=== PATIENT | male | born 1960 | race Caucasian/White ===

== ENCOUNTER 2016-06-23 15:26 | Inpatient (IN) | payer OTHER ==
[~2016-06-23] VITALS: Ht 180.3 cm; Wt 85.4 kg
[2016-06-23 15:40] VITALS: BP 121/95; PULSE 107; RESP 18; TEMP 98.1; O2SAT 96
[2016-06-23] MEDS ORDERED: BACT800T5 PO (17:26)
[2016-06-23] MEDS ORDERED: LEVO200T4 PO (17:26)
--- NOTE | 2016-06-23 18:03 | PD ---
HPI Chief Complaint: Laceration/Skin Injury Time Seen by Provider: 17:57 Travel History International Travel<30 days: No Contact w/Intl Traveler<30days: No Traveled to known affect area: No History of Present Illness HPI This 55-year-old male is complaining of pain and swelling of the left fifth finger. He says at about 10 days ago he went surfing and cut the finger. He says is quite a small cut like a paper cut. He noted some swelling and last he went to his doctor and was started on Bactrim. The Bactrim didn't seem to be helping and he went to [facility] on Wednesday. An incision and drainage was done and pus was obtained. He was changed to Cipro at that time. Since leaving there the finger has become more swollen and painful. He has fairly constant throbbing pain in the finger. The pain is alleviated by elevation PFSH Past Medical History Thyroid Disease: Yes Tetanus Vaccination: < 5 Years Influenza Vaccination: No Past Surgical History Other Surgery: Yes (LT ORBIT) Social History Alcohol Use: Yes (COUPLE TIMES PER MONTH) Tobacco Use: No Substance Use: No Allergies-Medications (Allergen,Severity, Reaction): Coded Allergies: Bee Sting (Verified Allergy, Unknown, DOESN'T REMEMBER, 06/23/16) Reported Meds & Prescriptions Reported Meds & Active Scripts Active Reported Levothyroxine (Levothyroxine Sodium) 200 Mcg Tab 200 Mcg PO DAILY Bactrim DS (Sulfamethoxazole-Trimethoprim) 800-160 Mg Tab 1 Tab PO BID Review of Systems General / Constitutional: No: Fever, Chills Eyes: No: Diploplia, Blurred Vision HENT: No: Headaches, Vertigo, Lightheadedness Cardiovascular: No: Chest Pain or Discomfort, Palpitations Respiratory: No: Cough, Shortness of Breath Gastrointestinal: No: Vomiting, Diarrhea Genitourinary: No: Urgency, Frequency Musculoskeletal: Positive: Pain Skin: Positive Rash Neurologic: No: Weakness, Dizziness Hematologic/Lymphatic: No: Easy Bruising Physical Exam Narrative GENERAL: Well-developed male SKIN: Warm and dry. HEAD: Atraumatic. Normocephalic. EYES: Pupils equal and round. No scleral icterus. No injection or drainage. ENT: No nasal bleeding or discharge. Mucous membranes pink and moist. NECK: Trachea midline. No JVD. CARDIOVASCULAR: Regular rate and rhythm. No murmur appreciated. RESPIRATORY: No accessory muscle use. Clear to auscultation. Breath sounds equal bilaterally. GASTROINTESTINAL: Abdomen soft, non-tender, nondistended. Hepatic and splenic margins not palpable. MUSCULOSKELETAL: No obvious deformities. No clubbing. No cyanosis. No edema. Examination of the left hand there is fairly diffuse swelling of the left fifth finger involving the middle phalanx and distally. There is some breakdown of the skin. There is diffuse erythema and some purulent drainage. Flexion of the distal phalanx is limited. There is no lymphangitis NEUROLOGICAL: Awake and alert. No obvious cranial nerve deficits. Motor grossly within normal limits. Normal speech. PSYCHIATRIC: Appropriate mood and affect; insight and judgment normal. Data Data Last Documented VS Vital Signs Date Time Temp Pulse Resp B/P Pulse Ox O2 Delivery O2 Flow Rate FiO2 06/23/16 15:40 98.1 107 18 121/95 96 Room Air Orders Complete Blood Count With Diff (06/23/16 18:14) Basic Metabolic Panel (Bmp) (06/23/16 18:14) Urinalysis - C+S If Indicated (06/23/16 18:14) Wound Culture And Gram Stain (06/23/16 18:14) Admit Order (Ed Use Only) (06/23/16 18:15) MDM Medical Decision Making Medical Screen Exam Complete: Yes Emergency Medical Condition: Yes Medical Record Reviewed: Yes Differential Diagnosis Differential includes recurrent abscess, intra-articular infection, soft tissue infection Narrative Course Case discussed with Dr. Domínguez. He requests admission for IV antibiotics and he will evaluate the patient for possible surgical treatment. Patient has been started on vancomycin Diagnosis Primary Impression: Finger infection Admitting Information Admitting Physician Requests: Admit Blu Abel MD Jun 23, 2016 18:03
[2016-06-23 18:32] LABS: AUTOMATED NEUTROPHIL # 6.5 TH/MM3 (1.8-7.7); BASOPHIL # 0.1 TH/MM3 (0-0.2); BASOPHIL % 0.7 % (0.0-2.0); EOSINOPHIL # 0.2 TH/MM3 (0-0.4); EOSINOPHIL % 2.1 % (0.0-4.0); LYMPH % 21.7 % (9.0-44.0); LYMPHOCYTE # 2.1 TH/MM3 (1.0-4.8); MEAN CELL VOLUME 86.8 FL (80.0-100.0); MEAN CORPUSCULAR HEMOGLOBIN 27.3 PG (27.0-34.0); MEAN CORPUSCULAR HGB CONC 31.4 % (32.0-36.0); MONO % 6.9 % (0.0-8.0); NEUT % 68.6 % (16.0-70.0); PLATELET COUNT 313 TH/MM3 (150-450); RED BLOOD COUNT 5.64 MIL/MM3 (4.50-5.90); WHITE BLOOD COUNT 9.6 TH/MM3 (4.0-11.0)
[2016-06-23 18:38] LABS: POTASSIUM 4.2 MEQ/L (3.5-5.1)
[2016-06-23 18:41] LABS: BICARBONATE 24.9 MEQ/L (21.0-32.0)
[2016-06-23 18:43] LABS: HEMO FLAGS DIFF FINAL
[2016-06-23 18:44] VITALS: BP 149/95; PULSE 62; RESP 18; O2SAT 97
[2016-06-23] MEDS ORDERED: SODIUM CHLOR 0.9% 1000 ML INJ 1,000 ML IV SCH (18:45)
[2016-06-23] MEDS ORDERED: VANCOMYCIN INJ 1,250 MG in SODIUM CHLOR 0.9% 250 ML INJ 250 ML IV ONE (18:45)
[2016-06-23 19:07] VITALS: BP 142/91; PULSE 62; RESP 20; O2SAT 97
[2016-06-23 19:34] LABS: BLOOD, URINE SMALL (NEG); GLUCOSE,URINE NEG (NEG); KETONE, URINE NEG (NEG); NITRITE,URINE NEG (NEG)
[2016-06-23] MEDS ORDERED: ACETAMINOPHEN 325 MG TAB PO PRN (19:45)
[2016-06-23] MEDS ORDERED: SODIUM CHLORIDE 0.9% FLUSH 10 ML FLUSH IV FLUSH PRN (19:45)
[2016-06-23] MEDS ORDERED: NALOXONE HCL 0.4 MG/ML AMP IV PRN (19:45)
[2016-06-23] MEDS ORDERED: ONDANSETRON HCL 4 MG/2 ML VIAL IVP PRN (19:45)
[2016-06-23] MEDS ORDERED: ACETAMINOPHEN/HYDROcodone 325 MG/5 MG TAB PO PRN (19:45)
--- NOTE | 2016-06-23 19:45 | HHI.HP ---
[facility] Florinda Ball M.D. Admission Diagnosis INFECTION LEFT FIFTH FINGER Diagnoses: Chief Complaint: Fifth left finger abscess and cellulitis Travel History International Travel<30 Days: No Contact w/Intl Traveler <30 Da: No Traveled to Known Affected Are: No History of Present Illness 55 years old right handed surfer male presented to the ED with complaining of severe pain and swelling and pus coming out of his left fifth finger. Patient reported having event while he was surfing about a week ago he wasn't sure what he touched while surfing that cause him and caught in his finger which he tried to treated symptomatically but got worse over the time with swelling redness and pus. He reported some subjective fever. He has no past mental history except for hypothyroidism no history of IVDU. Review of Systems All 10 systems reviewed and was positive for what is mentioned in history of present illness otherwise negative Past Family Social History Past Medical History Hypothyroidism Past Surgical History History of facial trauma in the past Allergies: Coded Allergies: Bee Sting (Verified Allergy, Unknown, DOESN'T REMEMBER, 06/23/16) Family History Not aware of any significant related medical history and his family Social History Denied tobacco alcohol or illicit drug abuse Physical Exam Vital Signs Vital Signs Date Time Temp Pulse Resp B/P Pulse Ox O2 Delivery O2 Flow Rate FiO2 06/23/16 19:07 62 20 142/91 97 Room Air 06/23/16 18:44 62 18 149/95 97 Room Air 06/23/16 15:40 98.1 107 18 121/95 96 Room Air Physical Exam GENERAL: This is a well-nourished, well-developed patient, in no apparent distress. SKIN: No rashes, warm and dry HEAD: Atraumatic. Normocephalic. EYES: Pupils equal round and reactive. Extraocular motions intact. No scleral icterus. ENT: Nose without bleeding, or drainage, Airway patent. NECK: Trachea midline. Supple CARDIOVASCULAR: Regular rate and rhythm without murmurs, gallops, or rubs. RESPIRATORY: Fair air entry bilaterally. No wheezes, rales, or rhonchi. GASTROINTESTINAL: Abdomen soft, non-tender, nondistended. Positive bowel sounds MUSCULOSKELETAL: Extremities without clubbing, cyanosis, or edema. Pedal pulses appreciated, left fifth digits with cut on the palmar side with significant swelling erythema and seems to be dry drainage NEUROLOGICAL: Awake and alert. Moves all extremity. Normal speech.no focal neurological deficit Laboratory Laboratory Tests Test 06/23/16 06/23/16 18:20 19:00 White Blood Count 9.6 Red Blood Count 5.64 Hemoglobin 15.4 Hematocrit 49.0 Mean Corpuscular Volume 86.8 Mean Corpuscular Hemoglobin 27.3 Mean Corpuscular Hemoglobin 31.4 Concent Red Cell Distribution Width 12.0 Platelet Count 313 Mean Platelet Volume 7.8 Neutrophils (%) (Auto) 68.6 Lymphocytes (%) (Auto) 21.7 Monocytes (%) (Auto) 6.9 Eosinophils (%) (Auto) 2.1 Basophils (%) (Auto) 0.7 Neutrophils # (Auto) 6.5 Lymphocytes # (Auto) 2.1 Monocytes # (Auto) 0.7 Eosinophils # (Auto) 0.2 Basophils # (Auto) 0.1 CBC Comment DIFF FINAL Differential Comment Sodium Level 143 Potassium Level 4.2 Chloride Level 108 Carbon Dioxide Level 24.9 Anion Gap 10 Blood Urea Nitrogen 25 Creatinine 1.00 Estimat Glomerular Filtration 78 Rate Random Glucose 94 Calcium Level 9.5 Urine pH 6.0 Urine Protein NEG Urine Glucose (UA) NEG Urine Ketones NEG Urine Occult Blood SMALL Urine Nitrite NEG Urine Bilirubin NEG Urine Leukocyte Esterase NEG Date/Time Procedure Status Source Growth 06/23/16 18:15 Gram Stain Received Wound Finger Pending 06/23/16 18:15 Wound Culture Received Wound Finger Pending Result Diagram: 06/23/16 1820 06/23/16 1820 Imaging Last Impressions Finger X-Ray 06/23/16 0000 Signed Impressions: Service Date/Time: Thursday, June 23, 2016 19:22 - CONCLUSION: Soft tissue swelling and no definite fracture for technique. Paul Osorio MD Assessment and Plan Assessment and Plan 55 years old male admitted with Left fifth finger cellulitis/abscess with possible tenosynovitis, due to trauma while surfing Consult and surgery for I&D Pain management Started on vancomycin, hand surgeon added Levaquin Hypothyroidism: Continue Synthroid DVT prophylaxis with ambulation Discussed Condition With Patient in ED physician Physician Certification 2 Midnight Certification Type: Admission for Inpatient Services Order for Inpatient Services The services are ordered in accordance with Medicare regulations or non- Medicare payer requirements, as applicable. In the case of services not specified as inpatient-only, they are appropriately provided as inpatient services in accordance with the 2-midnight benchmark. Estimated LOS (days): 2 days is the estimated time the patient will need to remain in the hospital, assuming treatment plan goals are met and no additional complications. Post-Hospital Plan: Not yet determined Antoinette Kelly MD Jun 23, 2016 19:44
[2016-06-23 19:50] LABS: URINE COLOR YELLOW (YELLW/STRAW)
[2016-06-23 19:51] LABS: RBC, URINE 0-3 /hpf (0-3); SQUAMOUS EPITHELIAL CELL URINE 0-5 /hpf (0-5)
[2016-06-23 19:52] LABS: COMMENT (UR) CULT NOT INDICATED; CULTURE IF INDICATED CULT NOT INDICATED
--- NOTE | 2016-06-23 19:54 | RADHPO ---
EXAM DATE/TIME: 06/23/2016 19:22 [place] COMPARISON: No previous studies available for comparison. INDICATIONS : Patient states something bit his finger while surfing. Complains of pain and swelling. MEDICAL HISTORY : None. SURGICAL HISTORY : None. ENCOUNTER: Initial ACUITY: 1 week PAIN SCORE: 10/10 LOCATION: Left hand, fifth digit FINDINGS: No definite fractures, or dislocations are identified. No definite lytic or sclerotic lesion is seen . Soft tissue swelling is identified. CONCLUSION: Soft tissue swelling and no definite fracture for tyler. Paul Osorio MD on June 23, 2016 at 19:52 Board Certified Radiologist. This report was verified electronically.
[2016-06-23] MEDS: SODIUM CHLORIDE 0.9% FLUSH 10 ML FLUSH IV FLUSH SCH (21:00)
[2016-06-23 21:30] VITALS: BP 147/106; PULSE 60; RESP 20; TEMP 97.4; O2SAT 97
--- NOTE | 2016-06-23 22:10 | MB ---
cc: YAZAN SHELL MD DATE OF ADMISSION 06/23/16 DATE OF CONSULTATION 06/23/16 HISTORY OF PRESENT ILLNESS The patient is a 55-year-old [id number] healthy white male who was sent here by Dr. Anne-Marie Ball with absolutely fantastic documentation accompanying him. Briefly, about eight days ago he cut his left fifth finger while surfing. It got infected. He was placed on antibiotics by mouth, subsequently had a brief incision and drainage in the emergency room at [facility] and then was seen by Dr. Ball today and emergently sent to my attention here at the hospital through the emergency room where he is currently with an infected left fifth finger. I agree completely with Dr. Ball it does need surgical attention urgently. PAST MEDICAL HISTORY History of hypothyroidism. PAST SURGICAL HISTORY 1. Tracheostomy at 2. Right facial trauma with surgery to correct that in 1999. FAMILY HISTORY Noncontributory to current visit or injury. ALLERGIES NO KNOWN DRUG ALLERGIES. MEDICATIONS Levothyroxine 200 mcg once a day. SOCIAL HISTORY Does not smoke or drink alcohol. REVIEW OF SYSTEMS The patient denies any headaches, blurry or double vision. He does not complain of any double or blurry vision. He is no Complain of any coughing, wheezing or shortness breath. He is not complaining of any chest pain or palpitations. He is not complaining of any nausea, vomiting or abdominal pain. He is not complaining of any burning, frequency or urgency with urination. He is not complaining of any spine, neck or back pain. He is not complaining of any painful joints or weakness or swelling of his legs. He is not complaining of any skin lesions, rashes or eruptions with exception of his left fifth finger. He is not complaining of any anxiety, depression or suicidal ideations. He is not complaining of any night sweats, fevers or chills. IMAGING STUDIES X-rays were performed and view in the hospital tonight to compare with one report from [facility] that Dr. Ball had done four days ago and it showed soft tissue swelling but no evidence of any bony erosion and no evidence of any fracture. PHYSICAL EXAMINATION GENERAL: The patient is well-developed, well-nourished in no apparent distress. He is very pleasant awake, alert and oriented sitting comfortably in bed. VITAL SIGNS: Temperature is 98.1, Heart rate 62, blood pressure 142/91, pulse ox 97% on room air. Examination of left upper extremity reveals an edematous, erythematous left fifth finger with superficial epidermolysis over the middle phalanx on the volar aspect. There is erythema that wraps around dorsally and there is some purulent drainage. The proximal phalanx seems to be unaffected. There is no streaking proximally and there is no tenderness in the palm. The flexor tendons and the extensor tendon appeared to all be intact as they are isolated and functional and he is able to flex at the DIP and the PIP joints. Capillary refill is less than 2 seconds in the tip of the finger. There is no obvious tenderness to passive manipulation of the DIP or the PIP joint and there is no instability. There is no streaking up into the forearm. There is a palpable radial pulse. There is no epitrochlear or axillary adenopathy palpable. IMPRESSION Left fifth finger cellulitis with abscess and likely flexor tenosynovitis. PLAN Go to the operating room tomorrow morning. Start him on antibiotics and will have strict elevation of his left hand. I have discussed this at length with the patient and I will update Dr. Ball tomorrow and thank her for her help with the documentation that she sent with the patient and made him n.p.o. after midnight. I have also started him on Levaquin and vancomycin for now. The old records indicated a culture that was obtained from [facility] revealed the bacteria to be Staphylococcus aureus, sensitive to most antibiotics and this was collected on 06/21 so start him on vancomycin and Levaquin which is susceptible to both. MD CHRISTOS Partida III/ /8:55 PM /9:44 PM
[2016-06-23] MEDS: ACETAMINOPHEN/HYDROcodone 325 MG/7.5 MG TAB PO PRN (22:19)
[2016-06-23] MEDS: SODIUM CHLOR 0.9% 1000 ML INJ 1,000 ML IV SCH (22:20)
[2016-06-23] MEDS: LEVOFLOXACIN 750 MG PREMIX INJ 150 ML IV SCH (22:20)
[2016-06-24] VITALS (7 sets, daily range): BP systolic 134–157; BP diastolic 87–99; PULSE 53–66; RESP 18–20; TEMP 96.9–98.3; O2SAT 93–98
[2016-06-24] MEDS ORDERED: LACTATED RINGER'S 1000 ML IV SCH (04:30)
[2016-06-24] MEDS: MORPHINE SULFATE 4 MG/ML INJ IV PRN ×5 (05:20→23:37)
[2016-06-24] MEDS: SODIUM CHLOR 0.9% 1000 ML INJ 1,000 ML IV SCH (06:21)
[2016-06-24 06:51] LABS: AUTOMATED NEUTROPHIL # 4.6 TH/MM3 (1.8-7.7); BASOPHIL # 0.1 TH/MM3 (0-0.2); BASOPHIL % 0.7 % (0.0-2.0); EOSINOPHIL # 0.3 TH/MM3 (0-0.4); EOSINOPHIL % 4.2 % (0.0-4.0); HEMATOCRIT 42.3 % (39.0-51.0); HEMO FLAGS DIFF FINAL; LYMPH % 23.8 % (9.0-44.0); LYMPHOCYTE # 1.8 TH/MM3 (1.0-4.8); MEAN CELL VOLUME 85.3 FL (80.0-100.0); MEAN CORPUSCULAR HEMOGLOBIN 28.7 PG (27.0-34.0); MEAN CORPUSCULAR HGB CONC 33.7 % (32.0-36.0); MONO % 10.2 % (0.0-8.0); NEUT % 61.1 % (16.0-70.0); PLATELET COUNT 285 TH/MM3 (150-450); RED BLOOD COUNT 4.96 MIL/MM3 (4.50-5.90); RED CELL DISTRIBUTION WIDTH 11.4 % (11.6-17.2); WHITE BLOOD COUNT 7.6 TH/MM3 (4.0-11.0)
[2016-06-24 06:54] LABS: POTASSIUM 3.9 MEQ/L (3.5-5.1)
[2016-06-24 07:06] LABS: BICARBONATE 23.9 MEQ/L (21.0-32.0)
[2016-06-24] MEDS: SODIUM CHLORIDE 0.9% FLUSH 10 ML FLUSH IV FLUSH SCH ×2 (09:00→20:31)
[2016-06-24] MEDS: ACETAMINOPHEN/HYDROcodone 325 MG/7.5 MG TAB PO PRN (09:43)
[2016-06-24] MEDS ORDERED: Vancomycin Consult Pharmacy 1 EA OTHER SCH (09:45)
[2016-06-24] MEDS ORDERED: PROPOFOL 200 MG/20 ML AMP IV ONE (10:23)
--- NOTE | 2016-06-24 11:41 | EKG ---
Date Performed: 06/24/2016 Time Performed: 05:18:16 PTAGE: 55 years EKG: Possible ectopic atrial bradycardia Inferior infarct - age undetermined Abnormal ECG NO PREVIOUS TRACING DOCTOR: Juliano Stein Interpretating Date/Time 06/24/2016 11:40:28
[2016-06-24] MEDS: VANCOMYCIN INJ 1,500 MG in SODIUM CHLORID 0.9% 500 ML INJ 500 ML IV SCH ×2 (11:58→23:01)
[2016-06-24] MEDS ORDERED: LIDOCAINE HCL 2% 50 ML VIAL ONE (12:25)
[2016-06-24] MEDS ORDERED: BUPIVACAINE HCL PF 0.5% 30 ML VIAL ONE (12:25)
[2016-06-24] MEDS ORDERED: MIDAZOLAM HCL 2 MG/2 ML VIAL ONE (12:32)
[2016-06-24] MEDS ORDERED: FAMOTIDINE 20 MG/2 ML VIAL ONE (12:32)
--- NOTE | 2016-06-24 15:26 | HHI.PR ---
Subjective Remarks Patient seen earlier today going for surgery I&D of the finger Objective Vitals Vital Signs Date Time Temp Pulse Resp B/P Pulse Ox O2 Delivery O2 Flow Rate FiO2 06/24/16 14:30 63 14 127/88 97 Room Air 06/24/16 14:15 97.8 74 14 114/82 96 Room Air 06/24/16 14:00 51 14 110/75 92 Room Air 06/24/16 13:45 68 14 115/80 93 Room Air 06/24/16 13:30 70 14 114/81 95 Room Air 06/24/16 13:27 97.4 66 14 112/66 92 Room Air 06/24/16 13:27 66 06/24/16 12:18 98.3 65 18 134/90 98 06/24/16 08:00 96.9 57 18 157/87 97 06/24/16 04:00 97.9 53 20 136/93 96 06/24/16 00:00 97.2 53 20 138/98 93 06/23/16 21:30 97.4 60 20 147/106 97 06/23/16 19:07 62 20 142/91 97 Room Air 06/23/16 18:44 62 18 149/95 97 Room Air 06/23/16 15:40 98.1 107 18 121/95 96 Room Air I/O 06/23/16 06/23/16 06/23/16 06/24/16 06/24/16 06/24/16 07:00 15:00 23:00 07:00 15:00 23:00 Intake Total 250 ml 600 ml 1220 ml Balance 250 ml 600 ml 1220 ml Intake Oral 0 ml 120 ml IV Total 250 ml 600 ml Other 1100 ml # Voids 2 1 0 # Bowel Movements 0 Result Diagram: 06/24/16 0509 06/24/16 0509 Imaging Last Impressions Finger X-Ray 06/23/16 0000 Signed Impressions: Service Date/Time: Thursday, June 23, 2016 19:22 - CONCLUSION: Soft tissue swelling and no definite fracture for technique. Paul Osorio MD Objective Remarks GENERAL: This is a well-nourished, well-developed patient, in no apparent distress. SKIN: No rashes, warm and dry HEAD: Atraumatic. Normocephalic. EYES: Pupils equal round and reactive. Extraocular motions intact. No scleral icterus. ENT: Nose without bleeding, or drainage, Airway patent. NECK: Trachea midline. Supple CARDIOVASCULAR: Regular rate and rhythm without murmurs, gallops, or rubs. RESPIRATORY: Fair air entry bilaterally. No wheezes, rales, or rhonchi. GASTROINTESTINAL: Abdomen soft, non-tender, nondistended. Positive bowel sounds MUSCULOSKELETAL: Extremities without clubbing, cyanosis, or edema. Pedal pulses appreciated, left fifth digits with cut on the palmar side with significant swelling erythema and seems to be dry drainage NEUROLOGICAL: Awake and alert. Moves all extremity. Normal speech.no focal neurological deficit A/P Assessment and Plan 55 years old male admitted with Left fifth finger cellulitis/abscess with possible tenosynovitis, due to trauma while surfing for I&D today by hand surgeon Dr. Domínguez Pain management Started on vancomycin, hand surgeon added Levaquin Hypothyroidism: Continue Synthroid DVT prophylaxis with ambulation I received a call from Dr. Domínguez notifying me about the result of EKG during prep for anesthesia showing Q-wave in inferior leads possible previous HI, will need to consider stress test maybe as an outpatient Discharge Planning When cleared by surgery on antibiotic according to cultures Antoinette Kelly MD Jun 24, 2016 15:26
[2016-06-24] MEDS ORDERED: ZOLPIDEM TARTRATE 10 MG TAB PO PRN (15:45)
[2016-06-24] MEDS: LEVOFLOXACIN 750 MG PREMIX INJ 150 ML IV SCH (20:30)
[2016-06-25] VITALS: BP 146/96; PULSE 61; RESP 18; TEMP 96.8; O2SAT 96
[2016-06-25] MEDS: SODIUM CHLORIDE 0.9% FLUSH 10 ML FLUSH IV FLUSH SCH ×2 (07:49→21:00)
[2016-06-25 10:29] VITALS: BP 136/91; PULSE 58; RESP 16; TEMP 96.4; O2SAT 97
[2016-06-25] MEDS: LEVOTHYROXINE SODIUM 200 MCG TAB PO SCH (10:53)
[2016-06-25] MEDS: MORPHINE SULFATE 4 MG/ML INJ IV PRN ×2 (10:57→22:06)
--- NOTE | 2016-06-25 11:10 | HHI.PR ---
Subjective Remarks pt comfortable, POD 1; in good spirits Objective Vital Signs Date Time Temp Pulse Resp B/P Pulse Ox O2 Delivery O2 Flow Rate FiO2 06/25/16 10:29 96.4 58 16 136/91 97 06/25/16 00:00 96.8 61 18 146/96 96 06/24/16 23:50 18 06/24/16 20:00 97.2 65 18 152/99 96 06/24/16 16:00 97.0 56 18 135/94 94 06/24/16 14:30 63 14 127/88 97 Room Air 06/24/16 14:15 97.8 74 14 114/82 96 Room Air 06/24/16 14:00 51 14 110/75 92 Room Air 06/24/16 13:45 68 14 115/80 93 Room Air 06/24/16 13:30 70 14 114/81 95 Room Air 06/24/16 13:27 97.4 66 14 112/66 92 Room Air 06/24/16 13:27 66 06/24/16 12:18 98.3 65 18 134/90 98 I/O 06/24/16 06/24/16 06/24/16 06/25/16 06/25/16 06/25/16 07:00 15:00 23:00 07:00 15:00 23:00 Intake Total 600 ml 1840 ml 660 ml Output Total 540 ml Balance 600 ml 1300 ml 660 ml Intake Oral 0 ml 120 ml 660 ml IV Total 600 ml 620 ml Other 1100 ml Output Urine Total 540 ml # Voids 1 3 5 # Bowel Movements 0 1 Result Diagram: 06/24/16 0509 06/24/16 0509 Other Results awaiting culture results Objective Remarks left 5th finger wound clean, no purulence; finger still edematous and erythematous but less angry lookiing; able to flex a bit; CR<2 seconds in the tip Assessment and Plan Problem List: (1) Finger infection Status: Acute Plan: continue IV abx await culture results ok to shower, w/d hands continue q8 hour packing changes strict elevation of the left hand Juanjose Domínguez III, MD Jun 25, 2016 11:10
[2016-06-25] MEDS: VANCOMYCIN INJ 1,500 MG in SODIUM CHLORID 0.9% 500 ML INJ 500 ML IV SCH ×2 (12:10→23:59)
--- NOTE | 2016-06-25 13:34 | MP ---
cc: YAZAN SHELL III, M.D. DATE OF SURGERY 06/24/2016 PROCEDURE Left fifth finger incision and debridement/drainage. PROCEDURE The patient brought to the operating room and placed supine on the operating table. After the correct site and side of surgery were verified by members of each team in the room multiple times including the patient and myself and after adequate general anesthesia had been achieved, the left upper extremity was prepped and draped in the usual sterile surgical fashion. A 50/50 mixture of 2% plain lidocaine and 0.5% plain Marcaine was infiltrated into the skin and subcutaneous tissue at the base of the base of the fifth finger at the metacarpal carpal level to provide postoperative pain relief. The limb was elevated and pressures was held on the brachial artery and a highly placed well-padded axillary tourniquet was inflated to 200 mmHg for a total of nine minutes. The epidermal lytic skin was sharply debrided across the entire finger. The abscess was then probed and opened up at the longest axis which was along the entire middle phalanx and up into the distal phalanx. A culture of the deep tissues was obtained and passed off the field as specimen. Vital structures were examined and were found be intact. The flexor tendon was completely intact and did not appear involved. The infection did not appear to track dorsally to the PIP or the PIP joint. All devitalized and infected tissue was sharply debrided and then two liters worth of antiseptic detergent saline was used to thoroughly irrigate out the wound. The wound was left open, it was secondary intention. It was packed with one-quarter inch Iodoform packing. A bulky soft dressing was applied. The axillary tourniquet was released and the hand and all the fingers including the left small finger became immediately soft, pink and warm and had brisk capillary refill of less than two seconds at the tip. The patient was awakened from anesthesia and transported to the Post Anesthesia Care Unit awake and in stable condition. Sponge, needle, and instrument counts were correct at the end of the case as per the nurses in the room. MD CHRISTOS Partida III/DEWEY /1:21 PM /1:27 PM
--- NOTE | 2016-06-25 13:50 | HHI.PR ---
Subjective Remarks Follow-up left fifth finger cellulitis/abscess. Patient reports that the pain is well controlled with morphine, but occasionally the finger starts throbbing. No other complaints at this time. Denies dyspnea, chest pain, nausea, vomiting. Objective Vitals Vital Signs Date Time Temp Pulse Resp B/P Pulse Ox O2 Delivery O2 Flow Rate FiO2 06/25/16 10:29 96.4 58 16 136/91 97 06/25/16 00:00 96.8 61 18 146/96 96 06/24/16 23:50 18 06/24/16 20:00 97.2 65 18 152/99 96 06/24/16 16:00 97.0 56 18 135/94 94 06/24/16 14:30 63 14 127/88 97 Room Air 06/24/16 14:15 97.8 74 14 114/82 96 Room Air 06/24/16 14:00 51 14 110/75 92 Room Air I/O 06/24/16 06/24/16 06/24/16 06/25/16 06/25/16 06/25/16 07:00 15:00 23:00 07:00 15:00 23:00 Intake Total 600 ml 1840 ml 660 ml Output Total 540 ml Balance 600 ml 1300 ml 660 ml Intake Oral 0 ml 120 ml 660 ml IV Total 600 ml 620 ml Other 1100 ml Output Urine Total 540 ml # Voids 1 3 5 # Bowel Movements 0 1 Result Diagram: 06/24/16 0509 06/24/16 0509 Imaging Last Impressions Finger X-Ray 06/23/16 0000 Signed Impressions: Service Date/Time: Thursday, June 23, 2016 19:22 - CONCLUSION: Soft tissue swelling and no definite fracture for technique. Paul Osorio MD Objective Remarks General: No acute distress. Heart: Regular rate and rhythm. No murmur. Lungs: Clear to auscultation bilaterally. No wheezes, rales, or rhonchi. Breathing is nonlabored. Abdomen: Soft, nontender, nondistended. Extremities: No lower extremity edema. Left fifth finger bandaged. Psych: Alert and oriented. Urinary Catheter: No Vascular Central Line Catheter: No A/P Problem List: (1) Abscess of finger of left hand ICD Code: L02.512 Status: Acute Assessment and Plan 1. Cellulitis/abscess, left fifth finger: Wound secondary to trauma while surfing. Status post incision and drainage. Appreciate hand surgery recommendations. Continue IV antibiotics. Dressing changes every 8 hours. Continue pain control. 2. Hypothyroidism: Continue Synthroid. 3. DVT prophylaxis: Ambulation. Discharge Planning Plan for discharge home when cleared by hand surgery. Lamont Alarcon MD Jun 25, 2016 13:50
[2016-06-25 14:41] VITALS: BP 130/86; PULSE 65; RESP 18; TEMP 96.2; O2SAT 96
[2016-06-25 17:59] VITALS: BP 140/96; PULSE 66; RESP 16; TEMP 96.7; O2SAT 99
[2016-06-25 20:00] VITALS: BP 124/88; PULSE 66; RESP 18; TEMP 96.8; O2SAT 98
[2016-06-25] MEDS: LEVOFLOXACIN 750 MG PREMIX INJ 150 ML IV SCH (21:55)
[2016-06-25] MEDS ORDERED: VANCOMYCIN TROUGH XX ONE (23:45)
[2016-06-26] VITALS: BP 148/87; PULSE 68; RESP 18; TEMP 96.2; O2SAT 96
[2016-06-26] MEDS: LEVOTHYROXINE SODIUM 200 MCG TAB PO SCH (06:30)
[2016-06-26 08:00] VITALS: BP 136/94; PULSE 55; RESP 18; TEMP 96.7; O2SAT 95
[2016-06-26] MEDS: SODIUM CHLORIDE 0.9% FLUSH 10 ML FLUSH IV FLUSH SCH (09:28)
[2016-06-26 12:00] VITALS: BP 139/101; PULSE 60; RESP 18; TEMP 96.7; O2SAT 96
[2016-06-26] MEDS: VANCOMYCIN INJ 1,500 MG in SODIUM CHLORID 0.9% 500 ML INJ 500 ML IV SCH (12:00)
--- NOTE | 2016-06-26 14:34 | HHI.DCPOC ---
Discharge Care Plan Diagnosis: (1) Abscess of finger of left hand Goals to Promote Your Health * To prevent worsening of your condition and complications * To maintain your health at the optimal level Directions to Meet Your Goals Take your medications as prescribed Follow your dietary instruction Follow activity as directed Keep your appointments as scheduled Take your immunizations and boosters as scheduled If your symptoms worsen call your PCP, if no PCP go to Urgent Care Center or Emergency Room Smoking is Dangerous to Your Health. Avoid second hand smoke Call the 24-hour hour crisis hotline for domestic abuse at Lamont Alarcon MD Jun 26, 2016 14:34
[2016-06-26] MEDS ORDERED: BACT800T5 PO (14:36)
[2016-06-26] MEDS ORDERED: NORC5TAB PO (14:36)
[2016-06-26] MEDS ORDERED: DOXY100C PO (14:36)
--- NOTE | 2016-06-26 14:40 | HHI.PR ---
Subjective Remarks pt comfortable, POD 2, wants to go home Objective Vital Signs Date Time Temp Pulse Resp B/P Pulse Ox O2 Delivery O2 Flow Rate FiO2 06/26/16 12:00 96.7 60 18 139/101 96 06/26/16 08:00 96.7 55 18 136/94 95 06/26/16 00:00 96.2 68 18 148/87 96 06/25/16 22:19 20 06/25/16 20:00 96.8 66 18 124/88 98 06/25/16 17:59 96.7 66 16 140/96 99 06/25/16 14:41 96.2 65 18 130/86 96 I/O 06/25/16 06/25/16 06/25/16 06/26/16 06/26/16 06/26/16 07:00 15:00 23:00 07:00 15:00 23:00 Intake Total 660 ml 1500 ml 780 ml 962 ml Balance 660 ml 1500 ml 780 ml 962 ml Intake Oral 660 ml 1500 ml 780 ml 960 ml IV Total 2 ml # Voids 5 5 6 6 # Bowel Movements 1 1 0 1 Result Diagram: 06/24/16 0509 06/25/16 2345 Other Results cultures and sensitivities reviewed Objective Remarks left 5th finger wound clean, no purulence; finger still edematous and erythematous but definitely less than yesterday; able to flex a bit; CR<2 seconds in the tip no induration no collections no drainage no signs of any purulence Assessment and Plan Problem List: (1) Finger infection Status: Acute Plan: change to po abx for d/c ok to shower, w/d hands strict elevation of the left hand don't need to pack wound any longer f/u with Dr Domínguez next week, call for appt seen with Juanjose Gonzalez III, MD Jun 26, 2016 14:40
[2016-06-26] MEDS ORDERED: DOXYCYCLINE HYCLATE 100 MG CAP PO ONE (16:00)
[2016-06-26] MEDS ORDERED: SULFAMETHOXAZOLE-TRIMETHOPRIM DS 800-160 MG TAB PO ONE (16:00)
--- NOTE | 2016-06-26 19:22 | HHI.DS ---
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 Patient reported having event while he was surfing about a week ago he wasn't sure what he touched while surfing that cause him and caught in his finger which he tried to treated symptomatically but got worse over the time with swelling redness and pus. He reported some subjective fever. He has no past mental history except for hypothyroidism no history of IVDU. CBC/BMP: 06/24/16 0509 06/25/16 2345 Significant Findings Laboratory Tests Test 06/24/16 06/25/16 05:09 23:45 Red Cell Distribution Width 11.4 % (11.6-17.2) Monocytes (%) (Auto) 10.2 % (0.0-8.0) Eosinophils (%) (Auto) 4.2 % (0.0-4.0) Blood Urea Nitrogen 21 MG/DL (7-18) Calcium Level 8.4 MG/DL (8.5-10.1) Vancomycin Level Trough 13.3 MCG/ML (5.0-10.0) Imaging Last Impressions Finger X-Ray 06/23/16 0000 Signed Impressions: Service Date/Time: Thursday, June 23, 2016 19:22 - CONCLUSION: Soft tissue swelling and no definite fracture for technique. K. Blu Osorio MD PE at Discharge General: No acute distress. Heart: Regular rate and rhythm. No murmur. Lungs: Clear to auscultation bilaterally. No wheezes, rales, or rhonchi. Breathing is nonlabored. Abdomen: Soft, nontender, nondistended. Extremities: No lower extremity edema. Left fifth finger with erythema, and open wound. Small amount of active drainage. Psych: Alert and oriented. Pt update on day of discharge No complaints at this time. Pain is well controlled. Patient is requesting discharge home. Hospital Course The patient was admitted for management of left fifth finger cellulitis/ abscess. He was started on IV antibiotics and pain control. Hand surgery was consulted. Incision and drainage was done. The patient showed clinical improvement throughout the hospitalization. Dressings were changed regularly. On the day of discharge, he was cleared for discharge by hand surgery. Recommendations were made for oral antibiotics. He was advised to follow-up with hand surgery. Pt Condition on Discharge: Stable Discharge Disposition: Discharge Home Discharge Time: > 30 minutes Discharge Instructions DIET: Follow Instructions for: As Tolerated, No Restrictions Activities you can perform: Regular-No Restrictions New Medications: Doxycycline Hyclate (Doxycycline Hyclate) 100 Mg Cap 100 MG PO BID Infection #20 Ref 0 CAP Hydrocodone-Acetaminophen (Ubly) 5-325 mg Tab 1 TAB PO Q6H PRN PAIN #12 Ref 0 TAB Sulfamethoxazole-Trimethoprim (Bactrim DS) 800-160 Mg Tab 1 TAB PO BID Infection #20 Ref 0 TAB Continued Medications: Levothyroxine (Levothyroxine) 200 Mcg Tab 200 MCG PO DAILY Thyroid #30 Ref 0 TAB Discontinued Medications: Sulfamethoxazole-Trimethoprim (Bactrim DS) 800-160 Mg Tab 1 TAB PO BID Infection Ref 0 TAB Lamont Alarcon MD Jun 26, 2016 19:22
== END 2016-06-26 16:37 | disposition home or self-care (01) | DRG 581 ==
LOC: PHED 15:26 → PHEDA 18:16 → PH3A 21:28
PROVIDERS: ADMIT Family Medicine; ATTEND Family Medicine
PROC: 0JBK0ZZ Excision of Left Hand Subcutaneous Tissue and Fascia, Open Approach (ICD-10-PCS; principal; 2016-06-24 12:40)
DX: L02.512 Cutaneous abscess of left hand (principal); E03.9 Hypothyroidism, unspecified; L03.012 Cellulitis of left finger; A49.01 Methicillin susceptible Staphylococcus aureus infection, unspecified site; M65.9 Synovitis and tenosynovitis, unspecified
CPT/HCPCS: 73140; 80048; 80202; 81001; 82565; 85025; 86403; 87015; 87070; 87102; 87116; 87147; 87186; 87205; 87206; 93005; 99284; J1956; J2250; J2270; J3010; J3370; J7030; J7040; J7050; J7120